=== PATIENT | female | born 1975 | race Asian ===

== ENCOUNTER 2017-12-20 03:55 | Emergency (ER) | payer MEDICAID ==
[~2017-12-20] VITALS: Ht 167.6 cm; Wt 127.3 kg
[~2017-12-20 03:55] MED LIST: IBUP-2070 PO
[2017-12-20] MEDS ORDERED: AZIT250T9 PO (04:06)
[2017-12-20] MEDS: OxyCODONE HCL/ACETAMINOPHEN 5-325 MG TABLET PO ONE (06:59)
[2017-12-20] MEDS: ONDANSETRON HCL 4 MG TABLET PO ONE (06:59)
[2017-12-20] MEDS: NEOMYCIN/POLYMYXIN B/HYDROCORT 10 ML OTIC SUSPENSION AS ONE (07:38)
[2017-12-20] MEDS: MORPHINE SULFATE 4 MG/ML SYRINGE IM ONE (08:13)
[2017-12-20 09:59] LABS: BASOPHILS % (AUTO) 0.2 % (0.0-2.0); EOSINOPHILS % (AUTO) 0.4 % (1.0-6.0); HEMATOCRIT 33.6 % (36-46); HEMOGLOBIN 10.9 g/dL (12.0-16.0); LYMPHOCYTES # (AUTO) 0.8 K/uL (1.0-4.8); LYMPHOCYTES % (AUTO) 6.3 % (22.0-44.0); MEAN CORPUSCULAR HEMOGLOBIN 22.4 pg (26.0-34.0); MEAN CORPUSCULAR HGB CONC 32.6 G/dL (31.0-37.0); MEAN CORPUSCULAR VOLUME 69 fL (80-100); MONOCYTES # (AUTO) 0.7 K/uL (0.1-1.0); MONOCYTES % (AUTO) 5.3 % (2.0-9.0); NEUTROPHILS # (AUTO) 11.2 K/uL (1.8-7.7); PLATELET COUNT (AUTO) 295 K/uL (150-450); RED BLOOD CELL COUNT(AUTO) 4.89 MIL/uL (4.00-5.20); RED CELL DISTRIBUTION WIDTH 19.3 % (11.5-14.5)
[2017-12-20 10:00] LABS: NEUTROPHILS % (AUTO) 87.8 % (40.0-70.0)
[2017-12-20 10:07] LABS: ANION GAP 6 mmol/L (8-16); CALCIUM, TOTAL 8.6 mg/dL (8.8-10.5); CARBON DIOXIDE 26 mmol/L (22-29); CHLORIDE 102 mmol/L (98-107); CREATININE 0.89 mg/dL (0.60-1.30); GLOMERULAR FILTR. RATE CALC > 60 mL/min (>60); GLUCOSE,RANDOM 115 mg/dL (70-110); POTASSIUM 3.8 mmol/L (3.5-5.1); SODIUM SERUM 134 mmol/L (136-145); UREA NITROGEN, BLOOD 12 mg/dL (7-18)
[2017-12-20 10:12] LABS: ALANINE AMINOTRANSFERASE 20 U/L (12-78); ALBUMIN 3.1 g/dL (3.4-5.0); ALKALINE PHOSPHATASE 124 U/L (46-116); ASPARTATE AMINOTRANSFERASE 17 U/L (15-37); BILIRUBIN,TOTAL 0.2 mg/dL (0.1-1.0); TOTAL PROTEIN, SERUM 7.5 g/dL (6.4-8.2)
[2017-12-20] MEDS: CLINDAMYCIN 900 MG/D5% WATER 50 ML IV ONE (10:52)
[2017-12-20] MEDS: MORPHINE SULFATE 4 MG/ML SYRINGE IVP ONE ×2 (11:32→13:45)
[2017-12-20] MEDS: CIPROFLOXACIN 400 MG/D5% WATER 200 ML IV ONE (11:53)
[2017-12-20] MEDS: CIPROFLOXACIN HCL 0.2%/HYDROCORT 1% 10 ML OTIC SUSPENSION AS ONE (12:05)
[2017-12-20 14:40] VITALS: BP 141/69
== END 2017-12-20 14:40 | disposition short-term general hospital (02) ==
LOC: EMS 03:55
DX: H70.92 Unspecified mastoiditis, left ear (principal); H66.92 Otitis media, unspecified, left ear; J45.909 Unspecified asthma, uncomplicated; Z88.1 Allergy status to other antibiotic agents; Z88.0 Allergy status to penicillin
CPT/HCPCS: 36415; 70480; 80053; 83036; 85025; 85610; 85730; 96365; 96366; 96372; 96375; 96376; 99285; J0744; J2270; J3490; Q0162